=== PATIENT | female | born 1965 | race Two or more races ===

== ENCOUNTER 2018-11-15 14:11 | Inpatient (IN) | payer OTHER ==
[~2018-11-15] VITALS: Ht 162.6 cm; Wt 65.8 kg
[2018-11-28] MEDS ORDERED: CARDIZEM CD240 MG PO (14:16)
[2018-12-14] MEDS ORDERED: PRILOSEC OTC20 MG PO (10:33)
[2018-12-14] MEDS ORDERED: PERCOCET 5-3251 EACH PO (10:33)
[2018-12-14] MEDS ORDERED: INTESTINEX680 M1 PO (10:33)
== END 2018-12-14 11:33 | disposition home or self-care (01) | DRG 331 ==
LOC: SURG 12-02 14:15 → O/R 12-09 07:18 → SURH 12-09 07:18 → SURG 12-09 14:15 → SURH 12-10 11:31
PROVIDERS: ADMIT Surgery
PROC: 07TB4ZZ Resection of Mesenteric Lymphatic, Percutaneous Endoscopic Approach (ICD-10-PCS; 2018-12-09)
PROC: 0DTF4ZZ Resection of Right Large Intestine, Percutaneous Endoscopic Approach (ICD-10-PCS; principal; 2018-12-09 15:30)
DX: D12.2 Benign neoplasm of ascending colon (principal); K57.30 Diverticulosis of large intestine without perforation or abscess without bleeding; R19.4 Change in bowel habit; R59.0 Localized enlarged lymph nodes; J45.20 Mild intermittent asthma, uncomplicated; I11.9 Hypertensive heart disease without heart failure; I34.1 Nonrheumatic mitral (valve) prolapse; K91.0 Vomiting following gastrointestinal surgery